=== PATIENT | female | born 1995 | race Two or more races ===

== ENCOUNTER 2023-09-04 05:07 | Emergency (ER) | payer MEDICAID ==
[~2023-09-04] VITALS: Ht 162.6 cm; Wt 82.0 kg
[2023-09-04] MEDS ORDERED: ACETAMINOPHEN 325 MG TAB PO ONE (05:45)
[2023-09-04 05:51] LABS: Basophils # (auto) 0.1 10 ^3/uL (0-0.2); Basophils % (auto) 0.8 % (0.0-2.0); Eosinophils # (auto) 0.1 10 ^3/uL (0-0.8); Eosinophils % (auto) 1.1 % (0.0-7.0); Hematocrit 41.4 % (36.0-46.0); Lymphocytes # (auto) 2.7 10 ^3/uL (0.4-5.4); Lymphocytes % (auto) 32.4 % (10.0-50.0); Mean Corpuscular Hemoglobin 28.1 pg (28.0-32.0); Mean Corpuscular Hgb Conc. 33.7 g/dL (32.0-36.0); Mean Corpuscular Volume 83.4 fL (80.0-100.0); Monocytes # (auto) 0.7 10 ^3/uL (0-1.3); Monocytes % (auto) 8.5 % (0.0-12.0); Neutrophils # (auto) 4.8 10 ^3/uL (1.6-8.6); Neutrophils % (auto) 57.2 % (37.0-80.0); Nucleated Red Blood Cells % 0.1 %; Red Blood Cells 4.97 10^6/uL (4.0-5.20); White Blood Cell 8.3 10^3/uL (4.4-10.8)
[2023-09-04 05:55] LABS: Urine Bacteria NONE SEEN /hpf (None Seen); Urine Blood 3+ /uL (Negative); Urine Clarity HAZY (Clear); Urine Color Red (Yellow); Urine Protein, UAD 2+ (Negative); Urine Urobilinogen Normal (Negative); Urine WBC 37 /hpf (0 - 5); Urine WBC Clumps PRESENT /hpf (None Seen); Urine pH 5.5 (5.0-8.0)
[2023-09-04 06:05] VITALS: PULSE 93; RESP 13; O2SAT 98
[2023-09-04] MEDS ORDERED: ONDANSETRON ODT 4 MG TAB PO ONE (06:15)
[2023-09-04 07:46] LABS: Alanine Aminotransferase 27 U/L (7-40); Albumin 4.6 g/dL (3.2-4.8); Alkaline Phosphatase 93 U/L (46-116); Anion Gap 11 (5-15); Aspartate Aminotransferase 18 U/L (13-40); BUN/Creatinine Ratio 15.9 (10.0-20.0); Bilirubin, Total 0.7 mg/dL (0.2-1.0); Blood Urea Nitrogen 10 mg/dL (9-23); Carbon Dioxide 20 mmol/L (20-30); Chloride 108 mmol/L (98-107); Glucose 91 mg/dL (74-106); Potassium 3.5 mmol/L (3.5-5.1); Sodium 139 mmol/L (136-145); Total Protein 7.6 g/dL (5.7-8.2)
[2023-09-04 07:46] LABS: Platelet Estimate Adequate
[2023-09-04 07:48] LABS: RBC Morphology Normal
[2023-09-04 09:27] VITALS: TEMP 98
[2023-09-04 10:08] VITALS: BP 106/71; PULSE 96; RESP 14; O2SAT 96
[2023-09-04] MEDS ORDERED: CEPH500T PO (10:30)
== END 2023-09-04 10:35 | disposition home or self-care (01) ==
LOC: ER 05:07
DX: O20.0 Threatened abortion (principal); Z79.899 Other long term (current) drug therapy; Z3A.00 Weeks of gestation of pregnancy not specified
CPT/HCPCS: 36415; 76801; 76817; 80053; 81001; 84702; 85025; 86850; 86900; 86901; 99284; Q0162

== ENCOUNTER 2024-05-13 20:29 | Emergency (ER) | payer MEDICAID ==
[~2024-05-13] VITALS: Ht 162.6 cm; Wt 84.4 kg
[~2024-05-13 20:29] MED LIST: CEPH500T PO; IBUP1TAB5 PO
[2024-05-13 20:55] VITALS: BP 127/76; PULSE 97; RESP 16; O2SAT 96
== END 2024-05-14 02:42 | disposition home or self-care (01) ==
LOC: ER 20:29
DX: S61.237A Puncture wound without foreign body of left little finger without damage to nail, initial encounter (principal); Z79.899 Other long term (current) drug therapy; Y93.39 Activity, other involving climbing, rappelling and jumping off; Y93.89 Activity, other specified; Y92.89 Other specified places as the place of occurrence of the external cause; Y99.8 Other external cause status
CPT/HCPCS: 29130